=== PATIENT | female | born 1990 | race Caucasian/White ===

== ENCOUNTER 2019-02-05 13:51 | Observation (INO) ==
[2019-02-05] MEDS ORDERED: Ringers Solution, Lactated 1,000 ML IVC SCH (14:30)
--- NOTE | 2019-02-05 16:56 | OB/GYN Progress Note ---
Date of Encounter: 02/05/19 Time of Encounter: 16:54 - Assessment and Plan (1) 36 weeks gestation of Current Visit: Yes Status: Acute On arrival to labor and delivery blood pressures were normotensive. heart rate monitoring was reactive. Both babies were very active. These findings were reviewed at length with the patient her and the family. Our plan is to discharge home today. She will follow up in the office tomorrow. We will repeat biophysical profiles in the morning. (2) Elevated blood pressure affecting in third trimester, antepartum Current Visit: No Status: Acute (3) Dichorionic diamniotic twin in third trimester Current Visit: No Status: Acute (4) NST (non-stress test) reactive Current Visit: No Status: Acute Subjective - Subjective Principal diagnosis: twin gestation Interval history: Patient was sent to labor and delivery from the office due to decreased movement on twin B. Twin A is breech, reactive and an 8 out of 8 biophysical. Twin B is transverse, 4 out of 8 biophysical in the office. Patient arrived to labor and delivery. No leaking fluid. No abdominal pain. No bleeding. Feeling well in general. She has been followed by maternal medicine. Dichorionic diamniotic. Normal amniotic fluid evaluations. Objective - Vital Signs Vital Signs: Intake and Output 02/05/19 02/05/19 02/05/19 07:59 15:59 23:59 Other: Weight 161 kg Patient Weight 02/05/19 23:59 Weight 161 kg - Exam FHR: category 1 (category grade 1 heart rate monitoring for both fetuses) Abdomen: Present: soft Uterus: Present: normal. Absent: firm
== END 2019-02-05 16:20 | disposition home or self-care (01) ==
LOC: 1NENULAB
PROVIDERS: ADMIT Advanced Practice Midwife; ATTEND Advanced Practice Midwife

== ENCOUNTER 2019-02-06 17:18 | Inpatient (IN) ==
[2019-02-06] MEDS ORDERED: Famotidine 20 MG/2 ML VIAL IVP PRN (17:35)
[2019-02-06] MEDS ORDERED: Metoclopramide 10 MG/2 ML VIAL IVP PRN (17:35)
[2019-02-06] MEDS ORDERED: Naloxone 0.4 MG/ML INJ IVP PRN (17:35)
[2019-02-06] MEDS ORDERED: *HR* Nalbuphine 10 MG/ML AMPUL IVP PRN (17:35)
[2019-02-06] MEDS ORDERED: Ondansetron 4 MG/2 ML VIAL IVP PRN (17:35)
[2019-02-06] MEDS ORDERED: Betamethasone Acet/SodPhos 6 MG/ML MDV IM SCH (17:45)
[2019-02-06] MEDS ORDERED: Ringers Solution, Lactated 1,000 ML IVC SCH (17:45)
--- NOTE | 2019-02-06 20:01 | OB/GYN History & Physical ---
Date of Encounter: 02/06/19 Time of Encounter: 19:56 Assessment and Plan (1) Intrauterine Current visit: Yes Status: Acute (2) Intact amniotic membranes during in third trimester Current visit: Yes Status: Acute (3) Type A blood, Rh positive Current visit: Yes Status: Acute (4) 36 weeks gestation of Current visit: No Status: Acute (5) Dichorionic diamniotic twin in third trimester Current visit: No Status: Acute Admit to L&D for steroids 2 and continuous monitoring in anticipation of delivery on Labs-PIH eval with clot to hold Intermittent auscultation of care per consult with Dr. Colón-patient should be monitored for 2 hours and then may have 4 hours off the monitor Pain management plan will be spinal for delivery and evaluated before hand depending on tracing Betamethasone IM 2 doses 24 hours apart Anticipate primary low transverse for twin A in breech position Plan of care per consult with Dr. Colón and Dr. Krishnamurthy (6) NST (non-stress test) reactive Current visit: No Status: Acute History of Present Illness Chief complaint: prolonged monitoring HPI: Ms. Donahue is a 28 year old female at 36 weeks 1 day gestation with an estimated date of of 03/05/19 dated by LMP. This is a twin with di-di twins. She presents from the office today status post BPP where the twin boys a scored 4 out of 10. This was the second scoring of similar measure for the boy fetus. [facility] was consulted per Dr. Colón and stated to give patient 2 doses of betamethasone and proceed with primary low transverse delivery for breech presentation of girl twin A. Her has been complicated by morbid obesity, fracture of the left hand and wrist, and twin gestation. Labs: A+ Hep B unknown HIV unknown RPR NR GC/CL unknown Rubella unknown Varicella unknown Past Med Surg Social Fam HX - Past Medical History Medical history: no medical history Additional medical history: DIVERTICULITIS Psychiatric history: no psych history - Past Surgical History Surgical History: other Additional surgical history: left ankle, screws. left knee surgery x 3. left and right ovarian cyst removed. tonsills - Social History Smoking Status: Never smoker Smokeless Tobacco Status: No Alcohol use: none Drug use: none - Family History Mother Living Status: Still Living Hx Family Cardiac Disorders: No Hx Family Respiratory Disorders: No Hx Family Cancer: No Hx Family GI Disorders: No Hx Family Genitourinary Disorders: No Hx Family Endocrine Disorder: No Hx Family Musculoskeletal Disorders: No Hx Family Neuromuscular Disorders: No Hx Family Neurologic Disorders: No Hx Family HEENT Disorders: No Hx Family Autoimmune Disorders: No Hx Family Reproductive Disorders: No Hx Family Psychosocial Disorders: No Hx Family Medical Disorders: Yes (hx of kidney transplant) Obstetrical History - Pregnancies : 4 Para: 1 Term: 1 (# 1: normal spontaneous vaginal delivery () Candice, 02/19/14, 40 weeks, 7.3, female) : 0 Ab's: 2 Livin Medications and Allergies Formula Tablet 2 tab PO DAILY 11/09/18 [History] Labetalol HCl 200 mg PO TID 01/11/19 [History] Allergy/AdvReac Type Severity Reaction Status Date / Time morphine AdvReac Severe Itching Verified 01/29/19 12:52 codeine AdvReac Hallucinati Verified 01/29/19 12:52 ng latex AdvReac Hives Verified 01/29/19 12:52 Review of System OB All systems PM: reviewed and no additional remarkable complaints except as stated Exam - Vital Signs Vital signs: Initial Vital Signs Temp Pulse Resp BP Pulse Ox 98.6 F 95 60 144/85 99 02/06/19 19:26 02/06/19 19:26 02/06/19 19:26 02/06/19 19:26 02/06/19 19:26 - Constitutional Constitutional: well developed, well nourished, no acute distress, morbidly obese - HEENT HEENT: PERRL, Normocephaly, Mucus Membranes Moist - Neck Neck exam: full ROM - Lungs Respiratory exam: CTAB - Cardiovascular Cardiovascular exam: RRR, +S1, +S2 - Breasts Breast: bilateral: normal - Abdomen Abdomen: Present: bowel sounds normal, gravid, non tender - Extremities Extremities exam: full ROM, normal capillary refill, normal inspection, radial pulses palpable and symmetrical - Vulva Vulva: bilateral: normal - Vagina Vagina: Present: normal moisture - Uterus Uterus exam: Present: enlarged, normal contour - Adnexa Adnexa: bilateral: normal - Anus/Rectum Anus/Rectum: Present: normal perianal skin Results Result Diagrams: 02/06/19 19:26 All other labs normal. - VTE Reasons for not Prescribing Prophylaxis: Treatment not Indicated - Low risk for VTE
[2019-02-06 20:20] LABS: Basophils % 0.2 %; Eosinophils # 0.1 K/mcL (0.0-0.6); Eosinophils % 0.8 %; Hematocrit 39.8 % (35.3-44.9); Hemoglobin 13.4 g/dL (11.5-15.4); Immature Granulocytes % 0.8 % (0-4); Lymphocytes # 2.4 K/mcL (0.6-4.6); Lymphocytes % 16.4 %; Mean Corpuscular HGB Conc 33.7 g/dL (31.6-35.5); Mean Corpuscular Hemoglobin 28.5 pg (28.0-33.3); Mean Corpuscular Volume 84.7 fL (83.0-100.0); Mean Platelet Volume 11.8 fL (9.4-12.4); Monocytes % 6.6 %; Platelet Count 167 K/mcL (140-400); Red Cell Distribution Width 14.2 % (11.5-14.5); Segmented Neutrophils % 75.2 %
[2019-02-06 20:40] LABS: Protein/Creatinine Ratio,Urine 0.17 mg/mg (0.00-0.20)
[2019-02-06 20:41] LABS: Amphetamine Screen,Urine Negative ng/mL (Cutoff=1000); Barbiturate Screen,Urine Negative ng/mL (Cutoff=200); Benzodiazepines Screen,Urine Negative ng/mL (Cutoff=200); Cannabinoid Screen,Urine Negative ng/mL (Cutoff = 50); Cocaine Screen,Urine Negative ng/mL (Cutoff= 300); Opiate Screen,Urine Negative ng/mL (Cutoff=300); Phencyclidine Screen,Urine Negative ng/mL (Cutoff=25)
[2019-02-06 20:42] LABS: Alanine Aminotransferase 16 Units/L (7-52); Aspartate Amino Transferase 18 Units/L (13-39); BUN/Creatinine Ratio 17 (6-26); Blood Urea Nitrogen 9 mg/dL (6-20); Lactate Dehydrogenase 152 Units/L (140-271); Uric Acid 5.6 mg/dL (2.3-7.6); eGFR For Non-African Americans > 60 (> 60)
--- NOTE | 2019-02-06 23:01 | OB/GYN Progress Note ---
Date of Encounter: 02/06/19 Time of Encounter: 22:53 - Assessment and Plan (1) Intrauterine Current Visit: Yes Status: Acute (2) Intact amniotic membranes during in third trimester Current Visit: Yes Status: Acute (3) Type A blood, Rh positive Current Visit: Yes Status: Acute (4) 36 weeks gestation of Current Visit: No Status: Acute (5) Dichorionic diamniotic twin in third trimester Current Visit: No Status: Acute Continue antepartum management Continuous monitoring Anticipate PLTCS for breech Subjective - Subjective Principal diagnosis: di-di twin with nr twin b Interval history: Patient denies contractions. Reports movement x 2. No complaints at this time. She denies lof, vb. Antepartum ROS: movement normal, no new complaints, no loss of fluid, no vaginal bleeding, no contractions Objective - Vital Signs Vital Signs: Vital Signs Temp Pulse Resp BP Pulse Ox 02/06/19 19:26 98.6 F 95 60 144/85 99 Intake and Output 02/06/19 02/06/19 02/06/19 07:59 15:59 23:59 Other: Weight 161.6 kg Patient Weight 02/06/19 23:59 Weight 161.6 kg - Exam FHR: category 1 FHR comments: Twin A: Baseline 140 Moderate variability Accelerations present 15x15 No decelerations FHR Category I Twin B: Baseline 125-130 Moderate variability Accelerations present 15x15 No decelerations FHR Category I Auscultation: bilateral: normal Abdomen: Present: normal appearance, soft, gravid Uterus: Present: normal, firm - Labs Labs: Abnormal lab results WBC 14.6 K/mcL (4.3-11.1) H 02/06/19 19:26 Neutrophils # 11.0 K/mcL (1.6-8.9) H 02/06/19 19:26 Creatinine 0.54 mg/dL (0.60-1.20) L 02/06/19 19:20 Urine Total Protein 29 mg/dL (1-14) H 02/06/19 19:20
--- NOTE | 2019-02-07 02:17 | Event Note ---
Date of Encounter: 02/07/19 Time of Encounter: 02:01 Both twins remain reactive for what can be seen of their tracing. Patient is growing increasingly intolerant of positional needs for monitoring. Dr. Krishnamurthy called to bedside to evaluate and advised to do singular nst q 2 hours on twins.
[2019-02-07] MEDS ORDERED: Oxytocin 20 units/ LR 1000 mL 20 UNIT/1,000 ML BAG IVC ONE ×2 (02:53→09:18)
[2019-02-07] MEDS ORDERED: CeFAZolin Syr 3,000MG/30 ML 3,000 MG/30 ML SYRINGE IVPB ONE (02:53)
--- NOTE | 2019-02-07 02:59 | Event Note ---
Date of Encounter: 02/07/19 Time of Encounter: 02:56 Pt reports she has been painfully yonathan and they are getting stronger. SVE /no presenting part. Dr. Krishnamurthy notified and requests to prepare for c/s for cervical change from 3cm at last exam.
[2019-02-07] MEDS ORDERED: Oxytocin 20 units/ LR 1000 mL 20 UNIT/1,000 ML BAG IVC SCH ×2 (03:00→09:06)
--- NOTE | 2019-02-07 03:05 | Anesthesia Evaluation PreOp ---
Date of Encounter: 02/07/19 Time of Encounter: 03:03 - Past History Planned Operation: Spinal/general for Primary csection on twins Cardiac History: HTN Pulmonary History: Denies Any Significant HX HAM PASSER History: Denies Any Significant HX Other Medical History: Other (Morbid obesity BMI 54) Anesthesia History: No Prior Anesthetic Complications, Past Anesthesia (Left ankle ORIF, Right knee scope x 3, Left Ovarian cyst removal, Right ovarian cyst removal, tonsils and adenoids.) : Yes Alcohol Use: none Drug use: none Medications and Allergies Formula Tablet 2 tab PO DAILY 11/09/18 [History] Labetalol HCl 200 mg PO TID 01/11/19 [History] Allergy/AdvReac Type Severity Reaction Status Date / Time morphine AdvReac Severe Itching Verified 01/29/19 12:52 codeine AdvReac Hallucinati Verified 01/29/19 12:52 ng latex AdvReac Hives Verified 01/29/19 12:52 - Meds/Allergy Pre-op Review Medications Reviewed: Yes Allergies Reviewed: Yes (pt consented to receiving morphine in spinal) Beta Blockers on Current Med List: No Anesthesia Results - Labs 02/06/19 19:26 02/06/19 19:20 Anesthesia Exam BP 140/81 P 90 R 16 T 98.0 Height: 5'8" Weight: 161.6kg NPO (# of Hours): 8 Pain Scale: 4 Pain Scale Used: Numeric (1 - 10) - HEENT Pupil (Motor): Pupils equal Mallampati: II Teeth: Normal Oral Opening: Greater than 3 - HAM PASSER LOC: Oriented HAM PASSER Motor: Normal RUE, Normal LUE, Normal RLE, Normal LLE, Normal Face HAM PASSER Sensory: Normal: RUE, LUE, RLE, LLE, Face - Cardiac Rhythm: Regular Murmur: None JVD: No Carotid Bruit: No - Pulmonary Breath Sounds: bilateral Clear Respiratory Effort: Symmetrical Anesthesia Assess/Plan ASA Score: 3 Level of consciousness: Cooperative Anesthetic Plan: Spinal Autologous Blood: Yes Monitoring Plan: Standard Monitors Recovery Plan: PACU
[2019-02-07] MEDS ORDERED: Dexamethasone 4 MG/ML VIAL ONE (03:18)
[2019-02-07] MEDS ORDERED: *HR* Morphine Sulfate/PF 10 MG/10 ML AMPUL ONE (03:18)
[2019-02-07] MEDS ORDERED: Ondansetron 4 MG/2 ML VIAL ONE (03:18)
[2019-02-07] MEDS ORDERED: *HR* Oxytocin 10 UNIT/ML VIAL IM ONE ×2 (03:34→04:27)
[2019-02-07] MEDS ORDERED: *HR* HYDROmorphone (PF) 1 MG/ML SYRINGE IVP PRN (03:46)
[2019-02-07] MEDS ORDERED: *HR* Promethazine 25 MG/ML VIAL IVP PRN (03:46)
--- NOTE | 2019-02-07 04:10 | Anesthesia Procedures ---
Date of Encounter: 02/07/19 Time of Encounter: 03:25 Procedures: Anesthesia - Epidural/Spinal Patient ID/Chart reviewed: Yes Patient examined: Yes OB Eval: Gestational age: 36.2 OB Eval: : 4 OB Eval: Hx Para: 1 OB Eval: Dilated at (cm): 5 OB Eval: Contractions: Non-stressed pattern Consent Obtained: Yes Supplemental Oxygen: None/Room Air Site Prep: Aseptic Technique, Sterile prep and drape, Povidone-Iodine 1% Patient position: upright Local Anesthetic: Lidocaine 1% Amount of Local Anesthetic used: 3 Interspace Used: L3-L4 Blood: No CSF: Yes Paresthesia: No Spinal Needle Gauge: 22 (sprotte) Spinal Dose: Bupivicaine 0.75% 1.8ml morphine 300mcg Procedure: Intrathecal dose administered 2nd pass with 22g sprotte following inability to reach intrathecal space with 25g needle. +CSF. No complications noted during procedure. Pt laid supine following intrathecal dose for primary csection. VSS throughout. Vitals + FHT's: See anesthesia record
[2019-02-07] MEDS ORDERED: Ringers Solution, Lactated 1,000 ML ONE ×2 (04:25)
--- NOTE | 2019-02-07 04:52 | OB/GYN Procedure Note ---
Section - Date of procedure: 02/07/19 Preop diagnosis: breech, other (PTL, di-di twin gestation) Post-op diagnosis: same Procedure: primary low transverse Surgeon: Wily Unger Blood Loss: [phone] Was there an greenhouse assistant present: Yes Flap Curer: Oksana Clark Anesthesia Type: Spinal section complications: none Disposition: L&D Recovery Room Specimens: Placenta - Narrative Narrative: The patient was taken to the operating room where spinal anesthesia was given and found to be adequate. The patient was prepped and draped in the usual sterile fashion in the dorsal supine position with a left-morejon tilt. A Pfannenstiel skin incision was made with the scalpel and carried through to the underlying layer of fascia. The fascia was incised in the midline and extended laterally. Viet clamps were used to elevate the superior aspect of the fascial incision, which was elevated, and the underlying rectus muscles were dissected off bluntly and using Pate scissors. Attention was then turned to the inferior aspect of the fascial incision, which in similar fashion was grasped with Viet clamps, elevated, and the underlying rectus muscles were dissected off bluntly and using Pate scissors. The rectus muscles were dissected in the midline. The peritoneum was bluntly dissected, entered, and extended superiorly and inferiorly with good visualization of the bladder. The bladder blade was inserted. The vesicouterine peritoneum was identified with pickups and entered sharply using Metzenbaum scissors. This incision was extended laterally and the bladder flap was created digitally. The bladder blade was reinserted. The lower uterine segment was incised in a transverse fashion using the scalpel and extended using manual traction. Sac of baby A was ruptured with clear fluid. The was subsequently delivered atraumatically. The nose and mouth were bulb suctioned. The cord was clamped and cut. The was subsequently handed to the awaiting nursery nurse. Sac of baby B was then ruptured with clear fluid as well. The infant was also delivered atraumatically. The nose and mouth were bulb suctioned. The cord was clamped and cut before handing over to the nurse. Both placentas were then removed spontaneously intact with 3-vessel cords noted. The uterus was exteriorized and cleared of all clots and debris. The uterine incision was repaired in 2 layers using 0 vicryl suture. Hemostasis was visualized. The uterus was returned to the abdomen. The uterine incision was reexamined and was noted to be hemostatic. The fascia was closed with 0 Vicryl, the subcutaneous layer was closed with multiple layers of 3-0 vicryl, and the skin was closed with 4-0 vicryl. Sponge, lap, and instrument counts were correct x2. The patient was stable at the completion of the procedure and was subsequently transferred to the recovery room in stable condition.
--- NOTE | 2019-02-07 06:15 | Anesthesia Evaluation Post Op ---
Date of Encounter: 02/07/19 Time of Encounter: 06:12 - Vital Signs Vital Signs: BP 126/73 P 96 R 16 T 98.2 - Lungs Lungs: Clear Ascult./Percussion - Airway Airway: Non-obstructed - Cardiovascular Regular Rate - Mental Status Mental Status: Alert & Oriented, Answers Appropriately - Pain Pain Scale: 0 Pain Scale used: Numeric (1 - 10) - Nausea Vomiting Nausea Vomiting: Responds to treatment with IV Meds - Hydration Hydration: NPO, Araiza catheter Notes: 02/07/19 06:15 Pt with mild nausea, states "getting better" - Discharge PostOp Status: Transfer Patient to floor
[2019-02-07] MEDS ORDERED: Measles/Mumps/Rubella Vacc 0.5 ML VIAL SQ PRN (09:06)
[2019-02-07] MEDS ORDERED: PRENATAL FORMULA PO SCH (09:06)
[2019-02-07] MEDS: Prenatal Vit/FA 1 EACH TABLET PO SCH ×2 (09:50→09:56)
[2019-02-07] MEDS ORDERED: Ondansetron 4 MG/2 ML VIAL IVP PRN (11:02)
[2019-02-07] MEDS ORDERED: Metoclopramide 10 MG/2 ML VIAL IVP PRN (13:31)
[2019-02-07] MEDS ORDERED: Scopolamine Patch 1.5 MG PATCH.TD72 TD SCH (15:15)
[2019-02-08] MEDS: *HR* HYDROcodone/Acet 5/325 mg TABLET PO PRN ×3 (04:30→19:05)
[2019-02-08 05:26] LABS: Basophils % 0.2 %; Eosinophils % 0.1 %; Hematocrit 33.3 % (35.3-44.9); Immature Granulocytes % 0.8 % (0-4); Lymphocytes # 2.6 K/mcL (0.6-4.6); Lymphocytes % 14.5 %; Mean Corpuscular HGB Conc 32.4 g/dL (31.6-35.5); Mean Corpuscular Volume 86.3 fL (83.0-100.0); Mean Platelet Volume 11.8 fL (9.4-12.4); Monocytes # 1.1 K/mcL (0.0-1.3); Monocytes % 6.5 %; Neutrophils # 13.8 K/mcL (1.6-8.9); Platelet Count 168 K/mcL (140-400); Red Blood Count 3.86 M/mcL (3.82-4.97); Red Cell Distribution Width 14.1 % (11.5-14.5); Segmented Neutrophils % 77.9 %
[2019-02-08 05:38] LABS: Hemoglobin 10.8 g/dL (11.5-15.4)
[2019-02-08] MEDS: Prenatal Vit/FA 1 EACH TABLET PO SCH (09:40)
[2019-02-08] MEDS: Ibuprofen 600 MG TABLET PO PRN ×2 (09:44→21:30)
--- NOTE | 2019-02-08 11:47 | OB/GYN Progress Note ---
Date of Encounter: 02/08/19 Time of Encounter: 11:47 - Assessment and Plan (1) Status post Current Visit: Yes Status: Acute patient meeting PPD1 milestones. +Flatus, No BM. Patient denies s/sx of anemia. Discussed control options and safe spacing. Patient states she has already talked with Dr. Colón about an IUD at appointment. Twins are in SCN, Pt ambulating without difficulty to visit with them. Anticipate discharge home tomorrow. (2) Breast feeding status of mother Current Visit: Yes Status: Acute Infants unable to direct breastfeed at this time. Mom has been pumping without difficulty. Discussed frequent pumping. Subjective - Subjective Patient reports: appetite normal, voiding normally, pain well controlled, ambulating normally : in NICU Objective - Vital Signs Latest vital signs: Vital Signs Temp Pulse Pulse Resp BP Pulse Ox 02/08/19 07:30 98.5 F 69 16 124/65 02/08/19 04:00 98.2 F 71 71 16 134/68 99 02/08/19 00:00 98.5 F 79 15 117/58 96 02/07/19 20:00 98.0 F 62 15 128/57 98 02/07/19 16:41 98.1 F 67 14 117/65 96 Intake and Output 02/07/19 02/08/19 02/08/19 23:59 07:59 15:59 Intake Total 240 / 240 240 / 240 Output Total 500 / 500 1900 / 1900 Balance -500 / -500 -1660 / -1660 240 / 240 Intake: Oral 240 / 240 240 / 240 Output: Urine 200 / 200 Catheter 500 / 500 1700 / 1700 Other: Meal Breakfast Percent of Meal Consumed 100% - Labs Labs: Laboratory Results - last 24 hr 02/08/19 04:35 WBC 17.7 H RBC 3.86 Hgb 10.8 L D Hct 33.3 L MCV 86.3 MCH 28.0 MCHC 32.4 RDW 14.1 Plt Count 168 MPV 11.8 Immature Gran % 0.8 Seg Neutrophils % 77.9 Lymphocytes % 14.5 Monocytes % 6.5 Eosinophils % 0.1 Basophils % 0.2 Neutrophils # 13.8 H Lymphocytes # 2.6 Monocytes # 1.1 Eosinophils # 0.0 Basophils # 0.0
[2019-02-09] MEDS: *HR* HYDROcodone/Acet 5/325 mg TABLET PO PRN (04:17)
[2019-02-09 07:32] VITALS: BP 134/85
[2019-02-09] MEDS: Prenatal Vit/FA 1 EACH TABLET PO SCH (08:24)
[2019-02-09] MEDS: Ibuprofen 600 MG TABLET PO PRN (08:25)
--- NOTE | 2019-02-09 08:41 | Discharge Summary ---
Date of Encounter: 02/09/19 Time of Encounter: 08:39 - Discharge Diagnosis (1) anemia Priority: Secondary Status: Acute Comments: Discharge with daily iron RX (2) Hypertension affecting , delivered, current hospitalization Priority: Secondary Status: Acute Comments: Continue labetalol tid as ordered. (3) Status post Priority: Primary Status: Acute Comments: Patient meeting day 2 milestones. Pain well-controlled with prescribed medications. Voiding without difficulty, tolerating regular diet, nausea and vomiting has resolved. No bowel movement yet. Anticipate discharge today to guest status Discusses patient's plan for control and she is going to have an IUD placed at 6 weeks . (4) Breast feeding status of mother Priority: Secondary Status: Acute Comments: support as needed. Breast pump prescription given. Currently pumping only since both twins on tube feedings at this time. - Discharge Medications Prescriptions: New Breast Pump [BREAST PUMP] 1 each .ROUTE AD #1 each HYDROcodone/Acet 5/325 mg [[place] 5-325 mg] 1 tab PO Q6HR PRN 7 Days #28 tablet PRN Reason: Moderate Pain (4-6) Ferrous Sulfate 325 mg PO DAILY #30 tablet Ibuprofen [Motrin] 600 mg PO Q6HR PRN #60 tablet PRN Reason: Cramping Docusate [Colace] 100 mg PO BID #60 capsule Mupirocin [Bactroban Oint] 1 appl TP BID tube Continue Formula Tablet 2 tab PO DAILY Labetalol HCl 200 mg PO TID Home Medications: Formula Tablet 2 tab PO DAILY 11/09/18 [History] Labetalol HCl 200 mg PO TID 01/11/19 [History] Breast Pump [BREAST PUMP] 1 each .ROUTE AD #1 each 02/07/19 [Rx] Docusate [Colace] 100 mg PO BID #60 capsule 02/09/19 [Rx] Ferrous Sulfate 325 mg PO DAILY #30 tablet 02/09/19 [Rx] HYDROcodone/Acet 5/325 mg [[place]ernando 5-325 mg] 1 tab PO Q6HR PRN 7 Days #28 tablet 02/09/19 [Rx] Ibuprofen [Motrin] 600 mg PO Q6HR PRN #60 tablet 02/09/19 [Rx] Mupirocin [Bactroban Oint] 1 appl TP BID tube 02/09/19 [Rx] Allergies/Adverse Reactions: Allergy/AdvReac Type Severity Reaction Status Date / Time morphine AdvReac Severe Itching Verified 01/29/19 12:52 codeine AdvReac Hallucinati Verified 01/29/19 12:52 ng latex AdvReac Hives Verified 01/29/19 12:52 Data Procedures and tests throughout hospitalization: Laboratory Tests 02/06/19 02/06/19 02/06/19 19:20 19:20 19:26 WBC RBC Hgb Hct MCV MCH MCHC RDW Plt Count MPV Immature Gran % Seg Neutrophils % Lymphocytes % Monocytes % Eosinophils % Basophils % Neutrophils # Lymphocytes # Monocytes # Eosinophils # Basophils # BUN 9 Creatinine 0.54 L Est GFR ( Amer) > 60 Est GFR (Non-Af Amer) > 60 BUN/Creatinine Ratio 17 Uric Acid 5.6 AST 18 ALT 16 Lactate Dehydrogenase 152 Urine Creatinine 171 Protein/Creatinin Ratio 0.17 Urine Total Protein 29 H Urine Opiates Screen Negative Ur Barbiturates Screen Negative Ur Phencyclidine Scrn Negative Ur Amphetamines Screen Negative U Benzodiazepines Scrn Negative Urine Cocaine Screen Negative U Marijuana (THC) Screen Negative Ur Drug Screen Interp See Below 02/06/19 02/08/19 19:26 04:35 WBC 14.6 H 17.7 H RBC 4.70 3.86 Hgb 13.4 10.8 L D Hct 39.8 33.3 L MCV 84.7 86.3 MCH 28.5 28.0 MCHC 33.7 32.4 RDW 14.2 14.1 Plt Count 167 168 MPV 11.8 11.8 Immature Gran % 0.8 0.8 Seg Neutrophils % 75.2 77.9 Lymphocytes % 16.4 14.5 Monocytes % 6.6 6.5 Eosinophils % 0.8 0.1 Basophils % 0.2 0.2 Neutrophils # 11.0 H 13.8 H Lymphocytes # 2.4 2.6 Monocytes # 1.0 1.1 Eosinophils # 0.1 0.0 Basophils # 0.0 0.0 BUN Creatinine Est GFR ( Amer) Est GFR (Non-Af Amer) BUN/Creatinine Ratio Uric Acid AST ALT Lactate Dehydrogenase Urine Creatinine Protein/Creatinin Ratio Urine Total Protein Urine Opiates Screen Ur Barbiturates Screen Ur Phencyclidine Scrn Ur Amphetamines Screen U Benzodiazepines Scrn Urine Cocaine Screen U Marijuana (THC) Screen Ur Drug Screen Interp Date of admission: 02/06/19 17:18 Primary care physician: PCP NONE Consults: 02/07/19 09:06 Consult to Gang Vibrator Operator [CONS] Routine Comment: Vaginal delivery, consult needed Discharging clinician: Mayi Jara Anticipated date of discharge: 02/09/19 - Patient Status Disposition: Home, Self-Care Condition: Good Functional capacity at discharge: independent ambulation Overall status at discharge: patient is progressing back to baseline - Discharge Instructions Follow Up With: NONE,PCP [Primary Care Provider] - - Diet and Activity Activity: resume usual activities as tolerated Diet: regular diet Hospital Course Reason for admission: active labor, observation Delivery: section Episiotomy: none Laceration: none Other procedures: none complications: none Discharge diagnosis: delivery baby: twins Hospital course: Date of procedure: 02/07/19 Preop diagnosis: breech, other (PTL, di-di twin gestation) Post-op diagnosis: same Procedure: primary low transverse Surgeon: Wily Unger Blood Loss: 700 Was there an certified nursing assistant present: Yes [employer] Delivery Specialist: Oksana Clark Anesthesia Type: Spinal section complications: none Disposition: L&D Recovery Room Specimens: Placenta - Narrative Narrative: The patient was taken to the operating room where spinal anesthesia was given and found to be adequate. The patient was prepped and draped in the usual sterile fashion in the dorsal supine position with a left-morejon tilt. A Pfa nnenstiel skin incision was made with the scalpel and carried through to the underlying layer of fascia. The fascia was incised in the midline and extended laterally. Viet clamps were used to elevate the superior aspect of the fascial incision, which was elevated, and the underlying rectus muscles were dissected off bluntly and using Pate scissors. Attention was then turned to the inferior aspect of the fascial incision, which in similar fashion was grasped with Viet clamps, elevated, and the underlying rectus muscles were dissected off bluntly and using Pate scissors. The rectus muscles were dissected in the midline. The peritoneum was bluntly dissected, entered, and extended superiorly and inferiorly with good visualization of the bladder. The bladder blade was inserted. The vesicouterine peritoneum was identified with pickups and entered sharply using Metzenbaum scissors. This incision was extended laterally and the bladder flap was created digitally. The bladder blade was reinserted. The lower uterine segment was incised in a transverse fashion using the scalpel and extended using manual traction. Sac of baby A was ruptured with clear fluid. The infant was subsequently delivered atraumatically. The nose and mouth were bulb suctioned. The cord was clamped and cut. The infant was subsequently handed to the awaiting nursery nurse. Sac of baby B was then ruptured with clear fluid as well. The infant was also delivered atraumatically. The nose and mouth were bulb suctioned. The cord was clamped and cut before handing over to the nurse. Both placentas were then removed spontaneously intact with 3-vessel cords noted. The uterus was exteriorized and cleared of all clots and debris. The uterine incision was repaired in 2 layers using 0 vicryl suture. Hemostasis was v isualized. The uterus was returned to the abdomen. The uterine incision was reexamined and was noted to be hemostatic. The fascia was closed with 0 Vicryl, the subcutaneous layer was closed with multiple layers of 3-0 vicryl, and the skin was closed with 4-0 vicryl. Sponge, lap, and instrument counts were correct x2. The patient was stable at the completion of the procedure and was subsequently transferred to the recovery room in stable condition. Time Attestation: Total time spent providing and/or coordinating discharge services: Time Spent: Less than 30 minutes - VTE Reasons for not Prescribing Prophylaxis: Treatment not Indicated - Low risk for VTE Documentation of Mechanical Device: Intermittent pneumatic compression device Exam - Constitutional Vitals: Temp Pulse Resp BP Pulse Ox 97.9 F 80 16 134/85 99 02/09/19 07:31 02/09/19 07:31 02/09/19 07:31 02/09/19 07:31 02/09/19 07:31 General appearance IM: A&O X 3, morbidly obese, pleasant, no acute distress, answers questions appropriately - Respiratory Respiratory exam: Present: CTAB - Cardiovascular Cardiovascular exam IM: Present: RRR, +S1, +S2 - GI/Abdominal GI/Abdominal exam IM: normal bowel sounds, soft, tenderness Incision: intact, dressed (with dermabond. Due to panus, dermabond is very adherent to all surrounding skin.) - Rectal Rectal exam: deferred - External exam: normal external exam Uterine Tone: Firm Uterus Position: At Umbilicus, Midline - Extremities Exam Extremities exam IM: Present: full ROM, normal capillary refill, normal inspection - Neurological Exam Neurological exam: alert, normal gait, oriented X3
== END 2019-02-09 12:06 | disposition home or self-care (01) | DRG 540 ==
LOC: 1NENULAB 17:18 → 1NENUOBS 02-07 08:17
PROVIDERS: ADMIT Advanced Practice Midwife; ATTEND Advanced Practice Midwife

== ENCOUNTER 2020-08-29 14:04 | Observation (INO) ==
[2020-08-29 14:58] LABS: Bacteria,Urine Few per hpf (None-Few); Bilirubin,Urine Negative (Negative); Blood,Urine Negative (Negative); Clarity,Urine Turbid (Clear); Color,Urine Yellow (Yellow); Glucose,Urine (UA) Normal (Normal); Ketones,Urine 40 mg/dL (Negative); Leukocyte Esterase,Urine Large (Negative); Mucus,Urine Many per lpf (None-Few); Nitrite,Urine Positive (Negative); Protein,Urine 70 mg/dL (Neg-Trace); Specific Gravity,Urine 1.026 (1.010-1.025); Squamous Epithelial Cell,Urine Many per hpf (None-Few); Urobilinogen,Urine Normal (Normal); WBC,Urine 50-100 per hpf (0-3)
[2020-08-29] MEDS ORDERED: cefTRIAXone 500 MG VIAL IM ONE (15:30)
[2020-08-29] MEDS ORDERED: Acetaminophen 325 MG TABLET PO ONE (15:30)
[2020-08-29 16:59] LABS: Candida DNA Not Detected (Not Detect); Gardnerella DNA Not Detected (Not Detect); Trichomonas DNA Not Detected (Not Detect)
== END 2020-08-29 16:23 | disposition home or self-care (01) ==
LOC: 1NENULAB
PROVIDERS: ADMIT Obstetrics & Gynecology; ATTEND Obstetrics & Gynecology

== ENCOUNTER → 2020-09-18 19:15 | Observation (INO) ==
[2020-09-18 16:24] LABS: Bacteria,Urine Many per hpf (None-Few); Bilirubin,Urine Negative (Negative); Blood,Urine Negative (Negative); Clarity,Urine Turbid (Clear); Color,Urine Yellow (Yellow); Glucose,Urine (UA) Normal (Normal); Ketones,Urine Negative (Negative); Leukocyte Esterase,Urine Large (Negative); Mucus,Urine Many per lpf (None-Few); Nitrite,Urine Positive (Negative); Protein,Urine 50 mg/dL (Neg-Trace); Specific Gravity,Urine 1.028 (1.010-1.025); Squamous Epithelial Cell,Urine Many per hpf (None-Few); Urobilinogen,Urine Normal (Normal); WBC,Urine TNTC per hpf (0-3)
[2020-09-18 17:09] LABS: Candida DNA Not Detected (Not Detect); Gardnerella DNA Not Detected (Not Detect); Trichomonas DNA Not Detected (Not Detect)
[~2020-09-18 19:15] MED LIST: CEFTRIAXONE IN IS-OSM DEXTROSE 1 GM/50 ML PIGGYBACK IVPB ONE; FLU Vac QV 20-21 (6Month+)/PF 0.5 ML SYRINGE IM ONE; Ringers Solution, Lactated 500 ML IVC ONE; Ringers Solution, Lactated 500 ML IVC SCH; cefTRIAXone 1,000 MG in Water for inj. (sterile) 10 ML IVP ONE; cefTRIAXone 2,000 MG in Water for inj. (sterile) 20 ML IVPB ONE
== END | disposition home or self-care (01) ==
LOC: 1NENULAB
PROVIDERS: ADMIT Obstetrics & Gynecology; ATTEND Obstetrics & Gynecology

== ENCOUNTER 2020-10-12 20:59 | Observation (INO) ==
[2020-10-12 21:29] VITALS: BP 135/71
[2020-10-12 21:47] LABS: Bacteria,Urine Few per hpf (None-Few); Bilirubin,Urine Negative (Negative); Blood,Urine Negative (Negative); Calcium Oxalate Crystals,Urine Present; Clarity,Urine Turbid (Clear); Color,Urine Yellow (Yellow); Glucose,Urine (UA) 70 mg/dL (Normal); Ketones,Urine 10 mg/dL (Negative); Leukocyte Esterase,Urine Moderate (Negative); Mucus,Urine Many per lpf (None-Few); Nitrite,Urine Positive (Negative); Protein,Urine 70 mg/dL (Neg-Trace); Specific Gravity,Urine > 1.030 (1.010-1.025); Squamous Epithelial Cell,Urine Moderate per hpf (None-Few); WBC,Urine 30-50 per hpf (0-3)
[2020-10-12] MEDS ORDERED: Ringers Solution, Lactated 1,000 ML IVC SCH (22:45)
== END 2020-10-13 00:24 | disposition home or self-care (01) ==
LOC: 1NENULAB
PROVIDERS: ADMIT Obstetrics & Gynecology; ATTEND Obstetrics & Gynecology

== ENCOUNTER → 2020-11-05 22:45 | Observation (INO) ==
[2020-11-05 18:57] LABS: Bacteria,Urine Few per hpf (None-Few); Basophils # 0.1 K/mcL (0.0-0.2); Basophils % 0.3 %; Bilirubin,Urine Negative (Negative); Blood,Urine Negative (Negative); Calcium Phosphate Crystals,Ur Present; Clarity,Urine Turbid (Clear); Color,Urine Yellow (Yellow); Eosinophils % 0.2 %; Glucose,Urine (UA) Normal (Normal); Hematocrit 39.7 % (35.3-44.9); Hemoglobin 12.5 g/dL (11.5-15.4); Ketones,Urine Negative (Negative); Leukocyte Esterase,Urine Large (Negative); Lymphocytes # 2.4 K/mcL (0.6-4.6); Lymphocytes % 13.9 %; Mean Corpuscular HGB Conc 31.5 g/dL (31.6-35.5); Mean Corpuscular Hemoglobin 25.1 pg (28.0-33.3); Mean Corpuscular Volume 79.7 fL (83.0-100.0); Mean Platelet Volume 11.5 fL (9.4-12.4); Mucus,Urine Few per lpf (None-Few); Neutrophils # 13.5 K/mcL (1.6-8.9); Nitrite,Urine Negative (Negative); Platelet Count 251 K/mcL (140-400); Protein,Urine 30 mg/dL (Neg-Trace); RBC,Urine 0-3 per hpf (0-3); Red Blood Count 4.98 M/mcL (3.82-4.97); Red Cell Distribution Width 13.8 % (11.5-14.5); Segmented Neutrophils % 78.6 %; Specific Gravity,Urine 1.023 (1.010-1.025); Squamous Epithelial Cell,Urine Moderate per hpf (None-Few); Urobilinogen,Urine Normal (Normal); WBC,Urine 30-50 per hpf (0-3); White Blood Count 17.2 K/mcL (4.3-11.1)
[2020-11-05 21:17] LABS: Candida DNA Not Detected (Not Detect); Gardnerella DNA Not Detected (Not Detect); Trichomonas DNA Not Detected (Not Detect)
[~2020-11-05 22:45] MED LIST changes: +Betamethasone Acet/SodPhos 30 MG/5 ML VIAL IM SCH; -CEFTRIAXONE IN IS-OSM DEXTROSE 1 GM/50 ML PIGGYBACK IVPB ONE; +Calcium Gluconate 1,000 MG/10 ML VIAL ONE; +EPHEDrine 50 MG/ML VIAL IVP PRN; +Epidural Premix (fent/bupiv) 110 ML EP SCH; -FLU Vac QV 20-21 (6Month+)/PF 0.5 ML SYRINGE IM ONE; +Magnesium Sulf 20 gm/SW 500mL 20 GM/500 ML IV.SOLN IVC SCH; +Ondansetron 4 MG/2 ML VIAL IVP SCH; +Ondansetron 4 MG/2 ML VIAL ONE; +Ringers Solution, Lactated 1,000 ML IVC SCH; +Ringers Solution, Lactated 1,000 ML ONE; -Ringers Solution, Lactated 500 ML IVC ONE; -Ringers Solution, Lactated 500 ML IVC SCH; +ceFAZolin 3,000 MG in 0.9 % Sodium Chloride 100 ML IVP SCH; -cefTRIAXone 1,000 MG in Water for inj. (sterile) 10 ML IVP ONE; -cefTRIAXone 2,000 MG in Water for inj. (sterile) 20 ML IVPB ONE
== END | disposition other institution (70) ==
LOC: 1NENULAB
PROVIDERS: ADMIT Obstetrics & Gynecology; ATTEND Obstetrics & Gynecology